=== PATIENT | female | born 1955 | race Caucasian/White ===

== ENCOUNTER → 2023-05-25 13:27 | Outpatient (REF) | payer MEDICARE, SELFPAY | LOC: HWRAD 13:27 | PROVIDERS: ATTENDING PHYSICIAN Internal Medicine; FAMILY PHYSICIAN Family Medicine; REFERRING PHYSICIAN Obstetrics & Gynecology | DX: Z12.31 Encounter for screening mammogram for malignant neoplasm of breast (principal); M81.0 Age-related osteoporosis without current pathological fracture | CPT/HCPCS: 77063; 77067; 77080 ==

== ENCOUNTER → 2023-06-05 10:21 | Outpatient (REF) | payer MEDICARE, SELFPAY | LOC: WDC 10:21 | PROVIDERS: ATTENDING PHYSICIAN Obstetrics & Gynecology; FAMILY PHYSICIAN Family Medicine | DX: R92.8 Other abnormal and inconclusive findings on diagnostic imaging of breast (principal) | CPT/HCPCS: 76642 ==

== ENCOUNTER → 2023-06-19 10:56 | Outpatient (REF) | payer MEDICARE, SELFPAY | LOC: WDC 10:56 | PROVIDERS: ATTENDING PHYSICIAN Obstetrics & Gynecology; FAMILY PHYSICIAN Family Medicine | DX: R92.2 Inconclusive mammogram (principal); R92.30 Dense breasts, unspecified | CPT/HCPCS: 76641 ==

== ENCOUNTER → 2024-01-28 06:39 | Day surgery (SDC) | payer MEDICARE, SELFPAY | LOC: GI 06:39 | PROVIDERS: ATTENDING PHYSICIAN Internal Medicine | DX: Z12.11 Encounter for screening for malignant neoplasm of colon (principal); K63.5 Polyp of colon; K57.30 Diverticulosis of large intestine without perforation or abscess without bleeding; K64.9 Unspecified hemorrhoids; Z86.0101 Personal history of adenomatous and serrated colon polyps; Z98.0 Intestinal bypass and anastomosis status | CPT/HCPCS: 45380; 45381; 88305 ==

== ENCOUNTER 2024-03-01 14:24 | Emergency (ER) | payer MEDICARE, SELFPAY ==
[2024-03-01 14:26] VITALS: BP 141/81
--- NOTE | 2024-03-01 15:14 | ED.GENMED ---
History of Present Illness
General
Chief Complaint: Fall
Source: patient
Exam Limitations: none
Time Seen by Provider: 03/01/24 15:14
Nursing documentation reviewed up to this point in time: agreed with
History of Present Illness
History of Present Illness:
68-year-old female with a past medical history of hyperlipidemia presents to the emergency department today with concerns of left wrist pain following a fall. Patient reports that she was going to get pizza today with her daughter when she tripped
onto the curb and fell with her hands outstretched. Patient reports that her hands broke her fall. She reports that as she fell, her left side of face brush the pavement but she did not hit her head. She not lose consciousness. She denies any
headache, neck pain, dizziness, lightheadedness. She denies any visual changes, any pain with extraocular movements. She denies any bleeding from her nose, any jaw pain.
Past History
Past History
ED Past Medical History: Hypercholesterolemia, Hypothyroidism and Other (Colon cancer and meningioma); Negative HTN, IDDM or NIDDM
ED Past Surgical History: Bowel resection (Right hemicolectomy for colon cancer), Gynecological (D and C), Orthopedic (Right thumb arthroplasty 2016) and Other (One-time dose of radiation for treatment of cavernous sinus meningioma 2000, similar
treatment 2006 for right sphenoid wing meningioma.)
Social History
Tobacco: Non-smoker
Alcohol: Occasional
Drug: None
Personal:
Living: with family
Employment: Retired
Family History
Family History: Other (Noncontributory)
Review of Systems
Review of Systems
All Other Systems: ROS reviewed and negative except as documented in HPI and ROS
Phy Exam
Physical Exam
Physical Exam:
General: Patient is well appearing and in no acute distress; non-toxic
Skin: Warm and dry, no rashes or lesions, brisk capillary refill
Head: Normocephalic, atraumatic, TMJ joints intact bilaterally, no tenderness palpation of the facial bone
Eyes: Sclera non-icteric. EOMs intact. PERRLA. No entrapment
Cardiac: Regular rate
Peripheral Vascular: 2+ radial and ulnar pulses, brisk capillary refill
Pulm: Normal respiratory effort
Abdomen: No abdominal tenderness
Musculoskeletal: No visual bony deformity, tenderness palpation diffusely noted across the distal radius and ulna. Full range of motion bilateral upper extremities, no bony tenderness palpation of the left elbow or left shoulder
Neuro: CN II-XII intact, no focal neurologic deficits. Sensation intact to light touch.
Psychiatric: Appropriate mood and affect.
Course
Orders/Labs/Results
Orders:
Orders
03/01/24 14:28
Wrist, Left 3 Views CR [CR Wrist - Left Min 3 Views] Urgent
Comment:
Reason For Exam: injury
03/01/24 15:34
Ibuprofen [Motrin] 600 mg PO NOW STA
Vital Signs
Initial and Last Documented VS:
Initial Vital Signs
Temp Pulse Resp BP Pulse Ox
97.9 F 84 16 141/81 97
03/01/24 14:26 03/01/24 14:26 03/01/24 14:26 03/01/24 14:26 03/01/24 14:26
Last Documented Vital Signs
Temp Pulse Resp BP Pulse Ox
97.9 F 84 16 141/81 97
03/01/24 14:26 03/01/24 14:26 03/01/24 14:26 03/01/24 14:26 03/01/24 14:26
MDM/Problems Addressed
Differential Diagnosis Includes:
see below
MDM/Problems Addressed:
NUMBER AND COMPLEXITY OF PROBLEMS ADDRESSED AT THE ENCOUNTER
� Chronic conditions affecting care: Hypertension
� Acute Exacerbation and/or Progression of Chronic Illness: N/A
� Differential Diagnosis includes: Closed fracture, scaphoid fracture, musculoskeletal sprain/strain
AMOUNT AND/OR COMPLEXITY OF DATA TO BE REVIEWED AND ANALYZED
� I performed an independent evaluation of and my interpretation is:
X-rays: Reviewed x-ray, x-ray reveals nondisplaced comminuted intra-articular fracture involving the radial styloid
Laboratory Studies: Not indicated at this time
Other:
� Review of other/old records: Reviewed notes in [facility], reviewed ER physician documentation from 06/27/2018, patient seen for numbness on the left face, she had unremarkable workup, history consistent with ocular migraine
� Clinical information was obtained by an independent historian: Daughter present with patient who recounts fall
� Prescriptions/Medications Considered but not given: N/A
� Further testing considered but not performed: N/A
RISK OF COMPLICATIONS AND/OR MORBIDITY OR MORTALITY OF PATIENT MANAGEMENT
� Social determinants of health affecting care: N/A
� Discussion with other providers: ER attending
� Escalation of care including admission/observation vs risk of discharge considered: 68-year-old female
Presents emergency department today following a fall on outstretched hand. When she fell, she not hit her head, she does not lose consciousness. She denies any neck pain. Physical exam, she has no signs of head or neck trauma, she has no
tenderness palpation of the facial bones, her EOMs intact, she has no entrapment. She does have tenderness palpation of the left wrist with mild overlying swelling. She is strong distal pulses and good cap refill. Sensation is intact. Her x-ray
reveals a radial styloid fracture, patient was placed in a sugar-tong splint. Patient seen Dr. Wylie in the past for her other hand. I advised patient to call his office first thing on Sunday morning. Return precautions discussed, splint care
discussed, patient pain controlled with ibuprofen, patient stable for dischrge
*Critical Care Note
Total Time (30-74mins, 75-104mins- exclusive of procedures): Not Applicable
ED Attending Note
-
Portions of this chart may have been created with voice recognition software.� Occasional wrong word or��sound alike� substitutions may have occurred due to the inherent limitations of voice recognition software.
Discharge Plan
Departure
Patient Disposition: Home (Routine Discharge)
Date of Disposition: 03/01/24
Time of Disposition: 16:27
Patient with high blood pressure during this ER visit?: Yes
Condition: Good
Discharge Problem:
Closed fracture of radial styloid
Instructions: Splint Care ED, BLOOD PRESSURE, Wrist Fracture
Prescriptions:
No Action
pravastatin 40 MG tablet
40 mg PO DAILY
levothyroxine 100 MCG tablet
100 mcg PO DAILY
multivitamin Tablet
1 tab PO DAILY
calcium carbonate [Calcium 500] 500 mg calcium (1,250 mg) Tablet
500 mg PO DAILY
cholecalciferol (vitamin D3) [Vitamin D3] 25 mcg (1,000 unit) Tablet
25 mcg PO DAILY
misoprostol 200 mcg Tablet
200 mcg PO ONCE
Rx Instructions:
Take once at 2200 02/27/22 and one at 0700 02/28/22
Referrals:
Rolo Wylie MD [Active] - Call in 1-3 days for appt
Jacob Marcelino MD [Primary Care Provider] -
Activity Restrictions/Additional Instructions:
You can alternate acetaminophen and ibuprofen for pain. For ibuprofen, you can take one 200 mg tablet every 4-6 hours as needed for pain. You can increase this to 400 mg every 4-6 hours if needed. Please do not exceed 1200 mg/day.
Please call Dr. Wylie's office first thing Sunday to schedule an appointment for evaluation.
Please do not remove the splint, please do not get the splint wet. Please keep this dry until you see orthopedics.
PLEASE RETURN TO THE EMERGENCY DEPARTMENT SHOULD YOU EXPERIENCE LOSS OF SENSATION IN YOUR LEFT WRIST, PALLOR, NUMBNESS OR TINGLING, INCREASING PAIN, CHEST PAIN, SHORTNESS OF BREATH, OR ANY OTHER SIGNS OR SYMPTOMS CONCERNING TO YOU.
Interventions
Interventions:
*Risk Screen - Suicide Last Done: 03/01/24 14:28
*General Assessment Last Done: 03/01/24 17:00
*Neglect/Abuse Screening Last Done: 03/01/24 14:28
*ED COVID-19 Vaccine History Last Done: 03/01/24 14:28
*Nursing Disposition Last Done: 03/01/24 17:00
ED-Musculoskeletal Assessment Last Done: 03/01/24 15:27
ED- Neurological Assessment Last Done: 03/01/24 15:27
ED-Skin Assessment Last Done: 03/01/24 15:27
Discharge Date and Time
Discharge Date/Time: 03/01/24 17:02
Print Language: PAKISTANI
[2024-03-01] MEDS: MOTRIN 600 MG PO (15:44)
== END 2024-03-01 17:02 | disposition home or self-care (01) ==
LOC: EMR 14:24
PROVIDERS: EMERGENCY PHYSICIAN Emergency Medicine; PRIMARYCARE PHYSICIAN Family Medicine
DX: S52.515A Nondisplaced fracture of left radial styloid process, initial encounter for closed fracture (principal); W01.0XXA Fall on same level from slipping, tripping and stumbling without subsequent striking against object, initial encounter; E78.00 Pure hypercholesterolemia, unspecified; E03.9 Hypothyroidism, unspecified; Z85.038 Personal history of other malignant neoplasm of large intestine; Z90.49 Acquired absence of other specified parts of digestive tract; I10 Essential (primary) hypertension
CPT/HCPCS: 29125; 99283; 73110

== ENCOUNTER 2024-04-22 06:14 | Day surgery (SDC) | payer MEDICARE, SELFPAY ==
[2024-04-22 11:15] VITALS: BMI 29.9
[2024-04-22 11:30] VITALS: BP 139/72; BMI 29.9
[2024-04-22 15:47] VITALS: BP 148/73
[2024-04-22 16:00] VITALS: BP 133/83
[2024-04-22 16:15] VITALS: BP 144/81
== END 2024-04-22 16:35 | disposition home or self-care (01) ==
LOC: GI 06:14
PROVIDERS: ATTENDING PHYSICIAN Internal Medicine Gastroenterology
DX: D12.3 Benign neoplasm of transverse colon (principal); K57.30 Diverticulosis of large intestine without perforation or abscess without bleeding; K64.0 First degree hemorrhoids; Z98.0 Intestinal bypass and anastomosis status
CPT/HCPCS: 45385; 88305

== ENCOUNTER → 2024-10-02 14:30 | Outpatient (REF) | payer MEDICARE, SELFPAY | LOC: WDC 14:30 | PROVIDERS: ATTENDING PHYSICIAN Obstetrics & Gynecology; FAMILY PHYSICIAN Family Medicine | DX: Z12.31 Encounter for screening mammogram for malignant neoplasm of breast (principal) | CPT/HCPCS: 77063; 77067 ==